=== PATIENT | female | born 1965 | race Two or more races ===

== ENCOUNTER 2018-03-31 18:08 | Emergency (ER) | payer OTHER ==
[~2018-03-31] VITALS: Ht 167.6 cm; Wt 108.9 kg
[2018-03-31 18:34] VITALS: BP 157/84
== END 2018-03-31 19:45 | disposition home or self-care (01) ==
LOC: ER 18:08
DX: J30.9 Allergic rhinitis, unspecified (principal); L72.11 Pilar cyst
CPT/HCPCS: 93005